=== PATIENT | female | born 1995 | race Caucasian/White ===

== ENCOUNTER 2023-02-27 01:27 | Day surgery (SDC) | payer OTHER, SELFPAY ==
[2023-02-25 15:32] VITALS: BMI 33.6
--- NOTE | 2023-02-25 15:35 | PC.NURSE ---
Report to the Outpatient Waiting Room, entrance under the green pavilion located off [facility], at time 1030 on date 02/27/23. Planned Procedure Time: 1230. Time changes happen often and if your time is changed the preop area will call you the afternoon before. - You and your visitor will be asked to self-screen and do not enter if you have any COVID symptoms. - A mask is optional within the hospital at this time. Patients may have clear liquids (water, carbonated beverages, clear teas, apple juice) until 3 hours prior to surgery with a maximum of 20 ounces. - No food from midnight until time of surgery Take the following medications with a SIP of water the morning of surgery: N/A DO NOT STOP ANY OF YOUR OTHER PRESCRIPTION MEDICATIONS PRIOR TO SURGERY ?EXCEPT THE FOLLOWING Medications to discontinue per physician: N/A Date to take last dose: N/A Please no make-up, nail khmer, hairspray, perfume, deodorant, or body powder the day of surgery. No jewelry (including any body piercings) or valuables the day of surgery, leave them at home. Please take a shower or bath the night before, or the morning of, surgery with an antibacterial soap. Wear comfortable, loose fitting clothing. - Jewelry must be removed prior to entering the operating room. Rings and piercings that are not removed may be cut off. - The hospital will not accept responsibility for valuables. - Please leave all valuables, including medications, at home the day of surgery. If you are going home after surgery, a licensed lyft driver must drive you home. - NO public transportation without another adult if you receive anesthesia. - We recommend that an adult stay with you for 24 hours following discharge. - We also recommend that you do not drive, make important decision, drink alcoholic beverages, or take any drugs that were not prescribed by your health care provider for at least 24 hours after your discharge time. Follow any additional instructions given to you from your surgeon. If you or anyone in your household have experienced Covid symptoms in the past week, please notify your surgeon or the nurse liaison at the phone number below for possible testing. Telephone instructions given to PT - DERICK GRAFF and asked if any additional questions and then verbalized understanding. Patient advised to call surgeon office or pre surgery nurse liaison [phone] if any additional questions.
--- NOTE | 2023-02-26 06:34 | PM.IMHP ---
H&P: HPI History of Present Illness Date/Time: 02/26/23 06:34 Chief Complaint: incomplete sab 1st trimester Narrative: 27-year-old female with first-trimester incomplete EAB. She passed tissue the 1st 10 weeks however tissue remained in the uterus. She will undergo suction D&C to remove the remainder. Risks and benefits reviewed [facility] Social History Social History Smoking status: Former smoker Tobacco type: e-cigarettes/vaping Smoking end date: 11/01/22 Alcohol use details: WHEN NOT Substance use: never Substance use type: does not use Living arrangements: with family Spiritual care concerns: No Meds Home Medications and Allergies Home Medications Medication Instructions Recorded Confirmed Type No Home Medications 02/25/23 02/25/23 History Allergies Allergy/AdvReac Type Severity Reaction Status Date / Time No Known Allergies Allergy Unverified 02/25/23 15:31 Exam Const: General: cooperative, healthy appearing and comfortable Nutritional Appearance: average body habitus Orientation/consciousness: oriented to person, oriented to place and oriented to time HENMT: Head: normal to inspection Resp: Effort & Inspection: normal respiratory effort Cardio: Rate: regular rate Rhythm: regular rhythm Heart sounds: S1 normal heart sound present and S2 normal heart sound present GI: Inspection: normal to inspection Percussion: Yes normal to percussion Auscultation: normal bowel sounds : External Female Exam: normal external appearance Speculum Exam - Vagina: normal appearance of the vagina and vaginal bleeding Speculum Exam - Cervix: normal appearance of the cervix Bimanual exam- vagina & uterus: enlarged Bimanual Exam- Adnexa, other: normal adnexae Assessment and Plan Assessment and plan (1) Incomplete spontaneous : Code(s): O03.4 - Incomplete spontaneous without complication Status: Acute Plan suction dilatation and curettage
--- NOTE | 2023-02-26 08:47 | WPDANESEPPF ---
Anes - Initial Pre Proc Eval Procedure: Operation Date: 02/27/23 12:30 Proposed Procedures p Suction Dilation and Curettage - Juan Manuel Lake MD Date/Time: 02/26/23 08:47 Surgeon: Juan Manuel Lake MD Pre Op Diagnosis: Missed Ab Patient Data Age: 27 Gender: F Height: 1.65 m Weight: 91.65 kg Allergies Allergy/AdvReac Type Severity Reaction Status Date / Time No Known Allergies Allergy Unverified 02/25/23 15:31 Home Medications Medication Instructions Recorded Confirmed Type hydrocodone 5 mg-acetaminophen 325 1 tablet PO Q4H PRN pain #20 tabs 02/27/23 Rx mg tablet Patient hx anesthesia problems: none Family hx anesthesia problems: none Results Review: All pre-operative results and documents have been reviewed as part of the pre-operative evaluation. [facility] Social History Social History Smoking status: Former smoker Tobacco type: e-cigarettes/vaping Smoking end date: 11/01/22 Alcohol use details: WHEN NOT Substance use: never Substance use type: does not use Living arrangements: with family Spiritual care concerns: No Anes - Eval Final PreProcedure Day of Procedure 02/26/23 08:47 Patient weight: obese Heart: regular rate and rhythm Lungs: clear to auscultation Airway: Mallampati scale class II Neurological: alert and oriented Last oral intake: >/= 8 hours ASA classification: II Emergent: no Anesthetic plan: proceed Anesthesia type and monitoring: general GIVS and standard monitoring Results Review: All pre-operative results and documents have been reviewed as part of the pre-operative evaluation. Informed Consent: The patient's anesthetic plan and its attendant risks and benefits were discussed with the patient/family/POA. Questions were solicited and answers provided to the satisfaction of the patient/family/POA.
--- NOTE | 2023-02-27 07:22 | WPDHPUPDATE1 ---
History and Physical Update Update Date/Time: 02/27/23 07:22 History and Physical has been reviewed, including an updated exam of the patient. There are NO changes in the patient's condition. Risks, benefits, and alternatives have been discussed and questions answered. Patient agrees to proceed with procedure.
[2023-02-27] MEDS: LACTATED RINGERS 1,000 ML 30 ML IV CONT (12:00)
[2023-02-27] MEDS: ACETAMINOPHEN 500 MG TABLET 1000 MG PO (12:30)
[2023-02-27 12:39] VITALS: BP 126/76; PULSE 72; RESP 18; TEMP 36.8; O2SAT 100
[2023-02-27] MEDS: KETOROLAC 30 MG/ML VIAL (*BKC) IV PUSH (12:52)
[2023-02-27] MEDS: LIDOCAINE HCL 1% LOCAL INJ 20 ML VIAL 10 ML INFILTRATE (12:55)
--- NOTE | 2023-02-27 12:59 | W.PM.PROC2 ---
Procedure Note - Detailed Date of Procedure 02/27/23 Pre-op Diagnosis Missed Ab Post-op Diagnosis Same Procedure Performed Suction dilatation curettage Surgeon Juan Manuel Lake MD Anesthesia MAC and Local Indications 27-year-old female with first-trimester incomplete AB Findings tissue consistent with products of conception Description of Procedure patient was prepped draped in normal sterile fashion placed in dorsal lithotomy position. Under excellent IV sedation weighted speculum placed in posterior fornix vagina. Anterior lip of cervix grasped with single-tooth tenaculum . 2.5cc of 1% xylocaine anesthesia placed at 2, 4, 8, 10:00 a.m. of the cervix. Uterus sounded to 10cm. Serial dilatation with fragmented dilators performed followed by passage of the 10. Suction curette removing moderate amount of tissue. When a good grating sound was heard the instruments withdrawn. The patient went to recovery in satisfactory condition. All sponge, needle, instrument counts were correct. Were no immediate complications Estimated Blood Loss 25 Drains No Packing No Pathology Yes Complications No immediate complications Condition Stable Disposition PACU
[2023-02-27 13:01] VITALS: BP 114/59; PULSE 96; RESP 14; O2SAT 100
[2023-02-27 13:30] VITALS: BP 111/63; PULSE 83; RESP 16; O2SAT 100
[2023-02-27 14:00] VITALS: BP 102/52; PULSE 67; RESP 16
[2023-02-27 14:30] VITALS: BP 108/51; PULSE 71; RESP 14
== END 2023-02-27 14:54 | disposition home or self-care (01) ==
PROVIDERS: PCP Family Medicine; Visit Provider Obstetrics & Gynecology
PROC: (CPT 59812; principal; 2023-02-27 12:30)
DX: O03.4 Incomplete spontaneous abortion without complication (principal); Z87.891 Personal history of nicotine dependence
CPT/HCPCS: 59812; 88305; A9270; J1885; J2250; J2405; J2704; J3010; J7120

== ENCOUNTER 2024-06-06 08:48 | Outpatient (RCR) | payer OTHER, SELFPAY ==
[2024-06-06 09:36] VITALS: BP 113/73; PULSE 105
== END 2024-09-04 23:59 | disposition home or self-care (01) ==
LOC: ANHOBOP 08:48
PROVIDERS: Visit Provider Obstetrics & Gynecology
DX: O36.8190 Decreased fetal movements, unspecified trimester, not applicable or unspecified (principal)
CPT/HCPCS: 59025

== ENCOUNTER 2024-06-08 04:54 | Inpatient (IN) | payer OTHER, SELFPAY ==
[2024-06-08] VITALS (119 sets, daily range): BP systolic 58–142; BP diastolic 30–117; PULSE 44–235; RESP 16–18; TEMP 36.3–37.3; O2SAT 83–100; BMI 36.6
--- NOTE | 2024-06-08 05:23 | LDADM ---
This patient, Ofelia Michaels, was admitted to Labor/Delivery/Recovery 104 on 06/08/24 at 04:54. Plans for labor, pain management and were discussed with patient. Patient/family oriented to hospital policies and general routines including ID bracelet, bed and alarms, visiting hours, pain management, procedures, bathroom and other care routines, personal items, smoking policy, room service/diet and guest tray routines, security routines, and visiting hours. Patient/Family are encouraged to report perceived risks to care and to ask questions if they do not understand what they are told or what they should do. See OBIX for further documentation.
[2024-06-08 05:53] LABS: Basophils Percent Auto 0.4 % (0.2-1.2); Eosinophils Absolute Auto 0.1 K/mm3 (0-0.3); Eosinophils Percent Auto 1.3 % (0-4.4); Hematocrit 32.4 % (37.0-47.0); Hemoglobin 11.6 g/dL (12.0-15.0); Immature Granulocyte Absolute 0.08 K/mm3 (0.00-0.031); Immature Granulocyte Percent A 1.2 % (0-0.5); Lymphocytes Absolute Auto 1.86 K/mm3 (0.9-3.2); Lymphocytes Percent Auto 27.5 % (18.3-44.2); Mean Corpuscular HGB Conc 35.8 g/dl (32-36); Mean Corpuscular Hemoglobin 33.9 pg (26-34); Mean Corpuscular Volume 94.7 fl (80-100); Mean Platelet Volume 11.3 fl (7.4-10.4); Monocytes Absolute Auto 0.4 K/mm3 (0.1-0.6); Monocytes Percent Auto 5.8 % (2.6-8.5); Neutrophils Absolute Auto 4.3 K/mm3 (1.3-6.7); Neutrophils Percent Auto 63.8 % (45.5-73.1); Platelet Count Result 161 k/mm3 (150-375); Red Blood Count 3.42 M/mm3 (4.2-5.4); Red Cell Distribution Width 13.4 % (11.5-14.5); White Blood Count 6.8 K/mm3 (4.5-10.0)
[2024-06-08] MEDS: LACTATED RINGERS 1,000 ML 125 ML IV CONT ×3 (05:54→10:35)
[2024-06-08] MEDS: OXYTOCIN 30 UNITS/NS 500 ML 30 UNITS/500 ML BAG IV CONT (05:55)
[2024-06-08] MEDS: AMPICILLIN 2 GM/NS 100 ML 2 GM/100 ML BAG IVPB (05:55)
--- NOTE | 2024-06-08 06:14 | PM.IMHP ---
H&P: HPI History of Present Illness Date/Time: 06/08/24 06:14 Chief Complaint: Term Narrative: this 27-year-old 28-year-old 3 para 1 whose last menstrual period was 09/06/2023, EDC is 06/12/2024, confirmed by 9 week ultrasound who presents at 39 weeks gestation for induction of labor she is positive for group B strep her has been otherwise unremarkable [facility] Family History Family History Other No pertinent family history Social History Social History Smoking status: Former smoker Tobacco type: e-cigarettes/vaping Smoking end date: 11/01/22 Alcohol use details: WHEN NOT Substance use: never Substance use type: does not use Do You Feel Safe in your Home?: Yes Lack of Transportation: No Lack of Food: Never True Current Housing: I Have Housing Concerned About Future Housing: No Difficulty Paying Gas/Electric Bills: No Difficulty Paying for Meds: No Currently Unemployed: No Education: High School Diploma/GED Difficulty w/ Childcare or Family Care: No Living arrangements: with family Spiritual care concerns: No Meds Home Medications and Allergies Home Medications Medication Instructions Recorded Confirmed Type vits no.126-ferrous fum 1 tablet PO DAILY 06/01/24 06/01/24 History 28 mg iron-folic acid 800 mcg tablet (Classic ) Allergies Allergy/AdvReac Type Severity Reaction Status Date / Time No Known Allergies Allergy Verified 06/01/24 12:17 Vital Signs Vital Signs - 24 hr 06/08/24 05:23 06/08/24 05:09 06/08/24 05:16 Pulse Rate 92 96 Blood Pressure 117/69 103/89 Oxygen Delivery Room Air 06/08/24 05:21 06/08/24 06:00 Pulse Rate 52 L 104 H Blood Pressure 110/60 130/67 Oxygen Delivery Exam Const: General: cooperative, healthy appearing and comfortable Nutritional Appearance: average body habitus Orientation/consciousness: oriented to person, oriented to place and oriented to time HENMT: Head: normal to inspection Resp: Effort & Inspection: normal respiratory effort Cardio: Rate: regular rate Rhythm: regular rhythm Heart sounds: S1 normal heart sound present and S2 normal heart sound present GI: Inspection: normal to inspection ( soft gravid uterus) : External Female Exam: normal external appearance Speculum Exam - Vagina: normal appearance of the vagina Speculum Exam - Cervix: normal appearance of the cervix ( cervix 4/75/2. AROM clear. FHT is reassuring) H&P: Results Labs Labs: Short CBC 06/08/24 Range/Units 05:46 WBC 6.8 (4.5-10.0) K/mm3 Hgb 11.6 L (12.0-15.0) g/dL Hct 32.4 L (37.0-47.0) % Plt Count 161 (150-375) k/mm3 Assessment and Plan Assessment and plan (1) Term : Code(s): Z34.90 - Encounter for supervision of normal , unspecified, unspecified trimester Status: Acute (2) Positive testing for group B Streptococcus: Code(s): B95.1 - Streptococcus, group B, as the cause of diseases classified elsewhere Status: Acute Assessment and Plan: medical induction of labor. Group B strep prophylaxis is being undertaken. She is an epidural candidate. Spontaneous vaginal delivery is expected
[2024-06-08 06:42] LABS: HIV 1/2 Ab P24 Ag Result Negative (Negative)
[2024-06-08] MEDS: fentaNYL CITRATE INJ (*CRX) 100 MCG/2 ML VIAL 50 MCG IV PUSH (08:22)
[2024-06-08 09:48] LABS: Rapid Plasma Reagin Non-Reactive (NonReactive)
[2024-06-08] MEDS: PHENYLEPHRINE 1,000 MCG/10 ML SYRINGE 100 MCG IV PUSH (10:10)
--- NOTE | 2024-06-08 10:23 | P.PNAN_ITS ---
Anes - Eval Pre Procedure Procedure: labor pain management Date/Time: 06/08/24 10:23 Surgeon: marin carty Pre Op Diagnosis: IOL Patient Data Age: 28 Gender: F Height: 1.65 m Weight: 100 kg Last Vital Signs Temp 97.4 F L 06/08/24 09:40 Pulse 77 06/08/24 10:21 BP 107/67 06/08/24 10:21 Pulse Ox 100 06/08/24 10:20 O2 Del Method Room Air 06/08/24 05:23 Allergies Allergy/AdvReac Type Severity Reaction Status Date / Time No Known Allergies Allergy Verified 06/01/24 12:17 Home Medications Medication Instructions Recorded Confirmed Type vits no.126-ferrous fum 1 tablet PO DAILY 06/01/24 06/01/24 History 28 mg iron-folic acid 800 mcg tablet (Classic ) Laboratory Tests 06/08/24 05:46 WBC 6.8 K/mm3 (4.5-10.0) RBC 3.42 L M/mm3 (4.2-5.4) Hgb 11.6 L g/dL (12.0-15.0) Hct 32.4 L % (37.0-47.0) MCV 94.7 fl (80-100) MCH 33.9 pg (26-34) MCHC 35.8 g/dl (32-36) RDW 13.4 % (11.5-14.5) Plt Count 161 k/mm3 (150-375) MPV 11.3 H fl (7.4-10.4) Immature Gran % (Auto) 1.2 H % (0-0.5) Neut % (Auto) 63.8 % (45.5-73.1) Lymph % (Auto) 27.5 % (18.3-44.2) Morton % (Auto) 5.8 % (2.6-8.5) Eos % (Auto) 1.3 % (0-4.4) Baso % (Auto) 0.4 % (0.2-1.2) Lymph # (Auto) 1.86 K/mm3 (0.9-3.2) Morton # (Auto) 0.4 K/mm3 (0.1-0.6) Eos # (Auto) 0.1 K/mm3 (0-0.3) Baso # (Auto) 0.0 K/mm3 (0.0-0.1) Abs Immat Gran (auto) 0.08 H K/mm3 (0.00-0.031) Absolute Neuts (auto) 4.3 K/mm3 (1.3-6.7) Absolute Nucleated RBC 0.000 K/mm3 (0.0-0.012) Nucleated RBC % 0.0 % (0.0-0.2) RPR Non-reactive (NonReactive) HIV 1&2 Ab/P24 Ag 4thGn Negative (Negative) Blood Type A Positive Antibody Screen Negative Patient hx anesthesia problems: none Family hx anesthesia problems: none Results Review: All pre-operative results and documents have been reviewed as part of the pre- operative evaluation. [facility] Family History Family History Other No pertinent family history Social History Social History Smoking status: Former smoker Tobacco type: e-cigarettes/vaping Smoking end date: 11/01/22 Alcohol use details: WHEN NOT Substance use: never Substance use type: does not use Do You Feel Safe in your Home?: Yes Lack of Transportation: No Lack of Food: Never True Current Housing: I Have Housing Concerned About Future Housing: No Difficulty Paying Gas/Electric Bills: No Difficulty Paying for Meds: No Currently Unemployed: No Education: High School Diploma/GED Difficulty w/ Childcare or Family Care: No Living arrangements: with family Spiritual care concerns: No Exam Day of Procedure 06/08/24 10:23
[2024-06-08] MEDS: AMPICILLIN 1 GM/NS 50 ML 1 GM/50 ML BAG IVPB (10:35)
--- NOTE | 2024-06-08 11:08 | PM.OBPNLAB ---
Pain Control Date/time seen: 06/08/24 11:08 Pain control: tolerating well and epidural Pelvic Exam Dilation (cm): 8 station: -1
--- NOTE | 2024-06-08 12:18 | P.PCNOB_ITS ---
OB - Vaginal Delivery Note Procedure Delivery date: 06/08/24 Events: Elective Induction of Labor and Positive Group B Strep (GBS) Induction method: AROM Delivery augmentation: Pitocin Delivery monitor: External FHT and External Uterine Route of delivery: Episiotomy description: None Laceration Description: None Specimen: No Quantitative Blood Loss (ml): 61 Anesthesia type: Epidural Disposition: Floor Complications: No immediate complications Narrative: Patient was admitted for induction of labor at term she is positive for group B strep she had 2 doses of ampicillin after artificial rupture membranes progressed an unremarkable 1st stage of labor when she was complete she pushed delivered head spontaneously in the MANJINDER position. Anterior posterior shoulder delivered spontaneously after relieving the the cornual from the occiput infant passed to the warmer given Apgars of 8 [id number]. Cord blood was drawn present. Placenta delivered intact spontaneously. Twenty of Pitocin placed IV to help firm the uterus. No tears or lacerations were noted. The there were no immediate complications. [place] [facility] Date of : 06/08/24 Time of : 12:08 Gestational Age by Date: 39 Infant gender: Male presentation: vertex position: Right Occiput Anterior Placenta delivery description: Spontaneous Cord Vessel Description: 3 Vessels, Nuchal Cord, Loose and Reduced score one minute: 8 score five minutes: 9 Narrative: Ampicillin x2 for group B strep
--- NOTE | 2024-06-08 12:20 | P.DS_ITS ---
DS: Admitting Diagnosis Discharge Date 06/09/2024 Admitting Diagnosis term /positive strep DS: Discharge Diagnosis Discharge Diagnosis (1) Positive testing for group B Streptococcus: Code(s): B95.1 - Streptococcus, group B, as the cause of diseases classified elsewhere Status: Acute (2) Term : Code(s): Z34.90 - Encounter for supervision of normal , unspecified, unspecified trimester Status: Acute DS: Summary Hospital Course Reason for hospitalization: patient was admitted for induction of labor at term on 06/08/2024 she underwent spontaneous vaginal delivery at 12:08 p.m. with 2 doses of ampicillin over epidural anesthesia Hospital Course: patient is hospital course unremarkable. She remained afebrile. She was up, voiding without difficulty, eating regular diet, ambulating, and generally without complaints. Time Spent with Patient Time attestation: Total time spent providing and/or coordinating discharge services: Exam Const: General: cooperative, healthy appearing and comfortable Nutritional Appearance: average body habitus Orientation/consciousness: oriented to person, oriented to place and oriented to time Resp: Effort & Inspection: normal respiratory effort Cardio: Rate: regular rate Rhythm: regular rhythm Heart sounds: S1 normal heart sound present and S2 normal heart sound present GI: Inspection: normal to inspection ( Fundus firm below the umbilicus) DS: Data Data Completed and Pending Labs on day of discharge: Labs from last 24 hours 06/08/24 05:46 WBC 6.8 RBC 3.42 L Hgb 11.6 L Hct 32.4 L MCV 94.7 MCH 33.9 MCHC 35.8 RDW 13.4 Plt Count 161 MPV 11.3 H Immature Gran % (Auto) 1.2 H Neut % (Auto) 63.8 Lymph % (Auto) 27.5 [place]eman % (Auto) 5.8 Eos % (Auto) 1.3 Baso % (Auto) 0.4 Lymph # (Auto) 1.86 [place] # (Auto) 0.4 Eos # (Auto) 0.1 Baso # (Auto) 0.0 Abs Immat Gran (auto) 0.08 H Absolute Neuts (auto) 4.3 Absolute Nucleated RBC 0.000 Nucleated RBC % 0.0 RPR Non-reactive HIV 1&2 Ab/P24 Ag 4thGn Negative Blood Type A Positive Antibody Screen Negative Discharge Plan Discharge Attending physician on discharge: Juan Manuel Barnes Discharging Clinician: Juan Manuel Barnes Patient Disposition: Home, Self-Care Activity: may shower and no straining Diet: heart healthy Wound Care Instructions: follow printed instructions Patient Instructions: Antibiotic Form Stand Alone Forms: General Discharge Information Follow-up/Referrals: Juan Manuel Barnes MD [Physician] - Discharge Medications: Continued Classic 28 mg iron- 800 mcg Tablet 1 tablet PO DAILY Date of admission: 06/08/24 04:54 Primary Care Provider: UNKNOWN,DOCTOR Admitting Provider: Juan Manuel Barnes Attending physician on admission: Juan Manuel Barnes Condition: Stable
[2024-06-08] MEDS: OXYTOCIN 30 UNITS/NS 500 ML 30 UNITS/500 ML BAG 125 UNITS IV CONT (12:44)
--- NOTE | 2024-06-08 15:02 | OBPPTRN ---
Patient transferred to post room #281 via (wheelchair ). Support person present. Oriented to unit, room, information board, rooming in, admission packet and security measures. Patient verbalizes understanding.
[2024-06-08] MEDS: DOCUSATE SODIUM 100 MG CAPSULE PO (16:26)
[2024-06-08] MEDS: IBUPROFEN 600 MG TABLET PO (16:27)
[2024-06-08] MEDS: ACETAMINOPHEN 325 MG TABLET 650 MG PO (19:55)
[2024-06-08] MEDS: LANOLIN (LANSINOH) 7.5 GM CREAM 1 APPLIC TOPICAL (19:56)
--- NOTE | 2024-06-08 20:00 | PC.NURSE ---
Pt introductions made and plan of care discussed per post , pain management. breast feeding, daily care activities. PT and spouse both recipients of such instructions and no barriers to learning identified at this time. PT received such instructions per one to one discussion, mom baby care guide and demonstrations. PT verbalized understanding of such care.
[2024-06-09] MEDS: ACETAMINOPHEN 325 MG TABLET 650 MG PO ×3 (05:01→20:57)
[2024-06-09 05:10] LABS: Hematocrit 32.9 % (37.0-47.0); Hemoglobin 11.7 g/dL (12.0-15.0)
[2024-06-09] MEDS: IBUPROFEN 600 MG TABLET PO ×3 (06:34→20:57)
--- NOTE | 2024-06-09 08:27 | P.PNOB_ITS ---
OB - PN: Subj Subjective Date/time seen: 06/09/24 08:27 Patient comments: no complaints and pain well controlled baby status: doing well OB - PN: Obj Data Labs 06/09/24 04:48 Labs: Laboratory Results - last 24 hr 06/08/24 06/09/24 05:46 04:48 Hgb 11.7 L Hct 32.9 L RPR Non-reactive OB - PN A/P Plan day: 1 Plan: routine care Time Spent With Patient Time: Total time spent is greater than 50% in coordination of care (as documented) at patient's floor/unit and/or counseling patient: Time with patient: less than 15 minutes Exam Const: General: cooperative, healthy appearing and comfortable Nutritional Appearance: average body habitus Orientation/consciousness: oriented to person, oriented to place and oriented to time Resp: Effort & Inspection: normal respiratory effort Cardio: Rate: regular rate Rhythm: regular rhythm Heart sounds: S1 n ormal heart sound present and S2 normal heart sound present GI: Inspection: normal to inspection
[2024-06-09 08:35] VITALS: BP 108/60; PULSE 58; RESP 16; TEMP 36.3; O2SAT 100
--- NOTE | 2024-06-09 10:28 | WPDANLDPN2 ---
Anes-Prog Note L&D Date/Time: 06/09/24 10:28 Comfortable throughout: labor and delivery Neuraxial method: epidural Epidural/Spinal procedure site: clean & non-tender Neuro status: Neuro function grossly intact. Cardiovascular status: normal Respiratory status: normal Airway patency: baseline Mental status: baseline Post-Op hydration status: normal Vital Signs: Last Vital Signs Temp 36.3 C L 06/09/24 08:35 Pulse 58 L 06/09/24 08:35 Resp 16 06/09/24 08:35 BP 108/60 06/09/24 08:35 Pulse Ox 100 06/09/24 08:35 O2 Del Method Room Air 06/08/24 20:00 Pain score (VAS): 0/10 Post-procedural complaints: none Patient feedback: Patient satisfied with anesthetic care.
[2024-06-09] MEDS: MULTIVIT/MIN/PREN/FOL AC/IRON TABLET 1 TAB PO (10:31)
[2024-06-09 12:56] VITALS: BP 108/57; PULSE 74; RESP 16; TEMP 36.3; O2SAT 99
--- NOTE | 2024-06-09 15:00 | PC.NURSE ---
1459. Pt given insurance pump per request. Mom reports she prefers to pump at this time over bringing baby to breast but she does not have a pump at home. Instructions given on cleaning, care, usage, that there should be no pain, pumping schedule for milk production, collection, and storage of human milk. Patient was assessed for correct placement, flange size, to pump for comfort and nipple stretching/stimulation for adequate milk production every 3 hours (8 times in 24 hours) 1-2 times at night. Parents are encouraged to record the pumping schedule on the feeding sheet.?Mother voiced understanding of the education shared along with mom/baby guide and the pump measurement, flange fit handout for additional resource information. Reported to the Primary RN.
--- NOTE | 2024-06-09 19:15 | PC.NURSE ---
PT introductions made and plan of care discussed per post , daily care activities, pain management, breast bottle feeding. PT and spouse both recipients of such instructions and no barriers to learning identified at this time. Instructions per one to one discussion, mom baby care guide and demonstrations. PT verbalized understanding of such care.
[2024-06-09 20:45] VITALS: BP 112/70; PULSE 65; RESP 18; TEMP 36.7; O2SAT 98
--- NOTE | 2024-06-10 07:05 | P.PNOB_ITS ---
OB - PN: Subj Subjective Date/time seen: 06/10/24 07:05 Patient comments: no complaints and pain well controlled baby status: doing well OB - PN: Obj Data Labs 06/09/24 04:48 OB - PN A/P Plan day: 2 Plan: routine care, discharge home and follow up 6 weeks Time Spent With Patient Time: Total time spent is greater than 50% in coordination of care (as documented) at patient's floor/unit and/or counseling patient: Time with patient: less than 15 minutes Exam Const: General: cooperative, healthy appearing and comfortable Orientat ion/consciousness: oriented to person, oriented to place and oriented to time HENMT: Head: normal to inspection GI: Inspection: normal to inspection
[2024-06-10] MEDS: MULTIVIT/MIN/PREN/FOL AC/IRON TABLET 1 TAB PO (07:41)
[2024-06-10 08:30] VITALS: BP 121/77; PULSE 70; RESP 16; TEMP 36.6; O2SAT 99
--- NOTE | 2024-06-10 10:25 | PC.NURSE ---
Patient instructed on viewing the discharge video Mother & Baby Care, The First Two Weeks . Patient was given the opportunity and encouraged to ask questions. Patient verbalized understanding of information shared and has been given the mother/baby guide for home reference.
[2024-06-11 11:30] VITALS: BP 134/64; PULSE 54; RESP 18; TEMP 36.8; O2SAT 99
== END 2024-06-10 12:20 | disposition home or self-care (01) | DRG 560 ==
LOC: ANHLDR 12:22 → ANHOB2 14:52
PROVIDERS: Admitting Provider Obstetrics & Gynecology; Visit Provider Obstetrics & Gynecology
DX: O99.824 Streptococcus B carrier state complicating childbirth (principal); O69.81X0 Labor and delivery complicated by cord around neck, without compression, not applicable or unspecified; Z3A.39 39 weeks gestation of pregnancy; Z37.0 Single live birth; Z87.891 Personal history of nicotine dependence
CPT/HCPCS: 36415; 85014; 85018; 85025; 86592; 86703; 86850; 86900; 86901; A9270; G0432; J0290; J2371; J2590; J2795; J3010; J7120